=== PATIENT | male | born 1955 | race Caucasian/White ===

== ENCOUNTER 2018-07-13 07:38 | Observation (INO) ==
[2018-07-13] MEDS ORDERED: Ipratropium/Albuterol Neb 3 ML IH ONE (07:40)
[2018-07-13] MEDS ORDERED: Ipratropium/Albuterol Neb 3 ML ONE (07:42)
--- NOTE | 2018-07-13 07:44 | Emergency Department Note ---
Disposition Clinical Impression: Acute exacerbation of chronic obstructive airways disease, Pneumonitis Congestive heart failure Qualifiers: Heart failure type: unspecified Heart failure chronicity: unspecified Qualified Code(s): I50.9 - Heart failure, unspecified Disposition: Admitted As Inpatient Condition: Fair Referrals: Shira Jarrett RETAIL SELLING SPECIALIST [Primary Care Provider] - Forms: ED Satisfaction Letter Time of Disposition: 12:15 SOB HPI - General Chief Complaint: ED Shortness of Breath/Dyspnea Stated Complaint: shortness of breath Time Seen by Provider: 07/13/18 07:40 Source: patient Mode of arrival: ambulatory Limitations: no limitations Nursing Notes Reviewed: Yes Vital Signs Reviewed: Yes - History of Present Illness Anxious 63-year-old male who presents here to the emergency room who just had a pacemaker placed yesterday who is extremely short of breath. Patient does continue to smoke tried an aerosol treatment home with no relief denies blurred vision double vision loss vision he denies shearing or chest pain just he cannot breathe denies diarrhea melena hematochezia hematemesis numbness tingling weakness recent weight gain weight loss dyspnea with activity dyspnea with exertional dyspnea just sitting and resting no cough no hemoptysis no sputum production no fevers no chills also systems have been reviewed and are otherwise negative Patient was in the 80s on his pulse oximetry when he arrived to the emergency room he does not have home oxygen is had recent testing which says he does not qualify that the patient still smokes. Pt Subjective Complaint: shortness of breath Onset (ago): Just [employer] Context: other (Pacemaker placement) - Related Data Home Medications Medication Instructions Recorded Confirmed Budesonide/Formoterol 160/4.5 2 puff IH BID 02/09/17 07/13/18 [Symbicort 160/4.5] Metoprolol Succinate 100 mg PO DAILY 02/09/17 07/13/18 Tiotropium [place] [Spiriva 2 puff IH DAILY 02/01/18 07/13/18 Respimat] Acetaminophen w/Cod 300-30 mg 1 tab PO Q6HR PRN 06/17/18 07/13/18 [Tylenol w/Codeine #3] Albuterol Sulfate [Ventolin Hfa] 2 puff IH Q6H PRN 06/17/18 07/13/18 Furosemide [Lasix] 20 mg PO QPM 06/17/18 07/13/18 Furosemide [Lasix] 40 mg PO QAM 06/17/18 07/13/18 Ipratropium/Albuterol Sulfate 3 ml IH Q6H PRN 06/17/18 07/13/18 [Iprat-Albut 0.5-3(2.5) mg/3 ml] raNITIdine HCl [Zantac] 150 mg PO DAILY PRN 06/17/18 06/17/18 Previous Rx's Medication Instructions Recorded Warfarin [Coumadin] 2.5 mg PO REHANTUTHFRSA #0 06/18/18 Allergies Allergy/AdvReac Type Severity Reaction Status Date / Time No Known Allergies Allergy Verified 07/13/18 07:39 All systems ED: reviewed and negative except as stated. Review of Systems: As Per HPI Constitutional: Denies: fever, chills, weakness Eyes: Denies: eye pain, eye discharge ENT ED: Denies: ear pain, congestion, dysphagia Cardiovascular: Reports: dyspnea on exertion. Denies: chest pain, palpitations Respiratory: Reports: dyspnea, wheezes, sputum production Gastrointestinal: Denies: abdominal pain, nausea, vomiting Genitourinary: Denies: urgency, dysuria, frequency Musculoskeletal: Denies: back pain, neck pain Integumentary: Denies: rash Neurological: Denies: headache Psychiatric: Denies: anxiety Endocrine: Denies: fatigue Hematological/Lymphatic: Denies: easy bleeding Allergic/Immunologic: Denies: facial swelling Past Medical History - Past Medical History Attestation: Yes The following information was validated with the patient. Source: patient, old records reviewed, obtained from family, nursing notes reviewed Medical history: Reports: atrial fibrillation, cardiomyopathy, CHF, COPD, coronary artery disease, GERD Surgical history: Reports: hip replacement, orthopedic, other, pacemaker/AICD, sinus surgery Psychiatric history: Reports: no psych history - Social History Smoking Status: Current every day smoker Smokeless Tobacco Status: No Alcohol use: Reports: none Drug use: Reports: none Physical Exam - General Limitations: no limitations General appearance: alert, in no apparent distress, anxious, cachectic - Head Head exam: atraumatic, normocephalic, normal inspection - Eye Eye exam: Present: normal appearance, PERRL, EOMI - ENT ENT exam: normal exam, normal oropharynx, mucous membranes moist, TM's normal bilaterally, normal external ear exam - Neck Neck exam: Present: normal inspection, full ROM, trachea midline - Chest Chest inspection: Present: normal inspection, symmetric chest wall rise, other (Pacemaker Steri-Strip insertion sites noted Steri-Strips are dark dirty and discolored) - Respiratory Respiratory exam: Present: wheezes, accessory muscle use, prolonged expiratory phase - Cardiovascular Cardiovascular exam: Present: regular rate, normal rhythm, normal heart sounds - Abdominal Exam Abdominal exam: Present: soft, Non-Tender, normal bowel sounds. Absent: mass, pulsatile mass - Expanded Upper Extremity Exam Shoulder exam: Present: normal inspection, full ROM Arm exam: Present: normal inspection, full ROM Elbow exam: Present: normal inspection, full ROM Forearm/Wrist exam: Present: normal inspection, full ROM Hand exam: Present: normal inspection, full ROM Vascular exam: Normal: capillary refill, radial pulse - Expanded Lower Extremity Exam Hip/Pelvis exam: Present: normal inspection, full ROM Upper leg exam: Present: normal inspection, full ROM Knee exam: Present: normal inspection, full ROM Lower leg exam: Present: normal inspection, full ROM Ankle exam: Present: normal inspection, full ROM Foot/toe exam: Present: normal inspection, full ROM Neurovascular/Tendon exam: Present: normal capillary refill, normal fine/light touch. Absent: motor deficit, sensory deficit, tendon deficit Gait: observed and normal - Back Exam Back exam: Present: normal inspection, full ROM, muscle spasm - Neurological Exam Neurological exam: Present: alert, oriented X3, CN II-XII intact, normal gait - Psychiatric Psychiatric exam: Present: normal affect, normal mood - Skin Skin exam: Present: warm, dry, intact, normal color Course Course Narrative: [facility] room And cardiac monitoring IV established patient was given a DuoNeb by cardio pulmonary marked improvement O2 sats came up to 92% almost immediately upon completion of the breathing treatment wheezing significantly diminished patient has labs pending at this time - Reevaluation(s) Reevaluation #1: Patient was turned over at 0830 hrs. to Pat Sanchez the oncoming ER physician with the results of the chest x-ray having been completed but the labs and CT PE study completed patient is markedly improved after the aerosol treatment holding sats of 92% on room air was placed on 2 L nasal cannula I advised the patient that he will probably need this days just pending he can stay here we did give him steroids and given a dose of antibiotics here he will final disposition Dr. bernal Reevaluation #2: Patient signed out to me by off going physician, Dr. Noriega. Patient is a 63-year-old male who presented to the ED this morning with worsening shortness of breath. States he is always somewhat short of breath and symptoms been worse over the past month but postictally severe this morning. States he was seen at urgent care month ago and was given prednisone and antibiotic. States symptoms improved with those treatments but then worsened again causing to come to the ER this morning. He has a long-standing history of COPD as well as CHF and n onischemic cardiomyopathy and A. fib. He underwent AV anastasia ablation and an ICD upgrade on June 17. No complications from that surgery that he reports. He has had follow-up with cardiology and will go back to see Dr. Jason on July 23. He has not seen his primary care doctor in a while and his next appointment is not until mid July. He reports compliance with his Spiriva, Symbicort and albuterol at home. He is on Coumadin and reports compliance with this as well. Patient is feeling much better since receiving steroids and a DuoNeb here in the ER and being placed on 2 L of oxygen. On my assessment he still has some scattered wheezing is not in any distress. Laboratory studies so far do show an elevated d-dimer but a therapeutic INR. BNP is elevated in the 400s but troponin is negative. Lactic acid is normal. Still awaiting creatinine in order for patient undergo CT PE study. Chest x-ray showed what appears to be some pneumonitis and underlying COPD. Patient has already been given Levaquin. Time: 09:34 Reevaluation #3: There was a significant delay in processing the patient's creatinine due to maintenance and other laboratory equipment issues, causing a delay in obtaining the CT PE study. CT was negative for PE but did show some pleural effusions and some signs of pulmonary edema consistent with patient's history and symptoms. I feel that he is having any exacerbation of both his COPD and CHF. Will give IV Lasix. Oxygen saturations are maintaining 93-95% on 2 L. He is not in any distress. Discussed with patient recommendation for admission and he is in agreement. We are paging the hospitalist at this time. Time: 12:03 Additional Reevaluation(s): 12:23 - I spoke to Dr. Hall who has accepted the patient. Vital Signs Temperature 98.3 F 07/13/18 07:40 Pulse Rate 76 07/13/18 07:40 Respiratory Rate 22 07/13/18 07:40 Blood Pressure 122/81 07/13/18 07:40 O2 Sat by Pulse Oximetry 92 07/13/18 07:40 Temperature 98.3 F 07/13/18 07:40 Pulse Rate 70 07/13/18 11:47 Respiratory Rate 18 07/13/18 11:47 Blood Pressure 115/82 07/13/18 11:47 O2 Sat by Pulse Oximetry 97 07/13/18 11:47 Oxygen Delivery Oxygen Delivery Nasal Cannula Shortness of Breath/Dyspnea - Differential Diagnosis Likely: acute exacerbation of chronic obstructive airways disease, congestive heart failure, pneumonia - Medical Records Medical records reviewed: Yes I reviewed the patient's medical records. - Lab Data Lab results reviewed: Yes I reviewed the patient's lab results. Result diagrams: 07/13/18 08:08 07/13/18 08:08 Lab Results 07/13/18 07/13/18 07/13/18 Range/Units 08:08 08:08 08:08 WBC 9.7 (4.3-11.1) K/mcL RBC 4.64 (4.19-5.50) M/mcL Hgb 13.8 (12.9-16.9) g/dL Hct 41.4 (37.5-50.1) % MCV 89.2 (83.0-100.0) fL MCH 29.7 (28.0-33.3) pg MCHC 33.3 (31.6-35.5) g/dL RDW 14.1 (11.5-14.5) % Plt Count 129 L (140-400) K/mcL MPV 10.5 (9.4-12.4) fL Immature Gran % 0.5 (0-4) % Seg Neutrophils % 51.6 % Lymphocytes % 36.6 % Monocytes % 9.6 % Eosinophils % 1.4 % Basophils % 0.3 % Neutrophils # 5.0 (1.6-8.9) K/mcL Lymphocytes # 3.6 (0.6-4.6) K/mcL Monocytes # 0.9 (0.0-1.3) K/mcL Eosinophils # 0.1 (0.0-0.6) K/mcL Basophils # 0.0 (0.0-0.2) K/mcL PT 42.2 H (9.4-12.1) Seconds INR 3.7 APTT 44.5 H (26.0-36.0) Seconds D-Dimer (0-500) ng/mLFEU Sodium 141 (136-145) mEq/L Potassium 4.0 (3.5-5.1) mEq/L Chloride 107 (98-107) mEq/L Carbon Dioxide 28 (23-29) mEq/L BUN 13 (8-23) mg/dL Creatinine 0.71 (0.70-1.30) mg/dL Est GFR ( Amer) > 60 (> 60) Est GFR (Non-Af Amer) > 60 (> 60) BUN/Creatinine Ratio 18 (6-26) Glucose 136 H (70-105) mg/dL Calculated Osmolality 294 (280-300) Lactic Acid (0.5-2.2) mmol/L Calcium 8.6 (8.6-10.3) mg/dL Troponin I < 0.03 (< 0.04) ng/mL B-Natriuretic Peptide (Less than 100) pg/mL 07/13/18 07/13/18 07/13/18 Range/Units 08:08 08:08 08:08 WBC (4.3-11.1) K/mcL RBC (4.19-5.50) M/mcL Hgb (12.9-16.9) g/dL Hct (37.5-50.1) % MCV (83.0-100.0) fL MCH (28.0-33.3) pg MCHC (31.6-35.5) g/dL RDW (11.5-14.5) % Plt Count (140-400) K/mcL MPV (9.4-12.4) fL Immature Gran % (0-4) % Seg Neutrophils % % Lymphocytes % % Monocytes % % Eosinophils % % Basophils % % Neutrophils # (1.6-8.9) K/mcL Lymphocytes # (0.6-4.6) K/mcL Monocytes # (0.0-1.3) K/mcL Eosinophils # (0.0-0.6) K/mcL Basophils # (0.0-0.2) K/mcL PT (9.4-12.1) Seconds INR APTT (26.0-36.0) Seconds D-Dimer 911 H (0-500) ng/mLFEU Sodium (136-145) mEq/L Potassium (3.5-5.1) mEq/L Chloride (98-107) mEq/L Carbon Dioxide (23-29) mEq/L BUN (8-23) mg/dL Creatinine (0.70-1.30) mg/dL Est GFR ( Amer) (> 60) Est GFR (Non-Af Amer) (> 60) BUN/Creatinine Ratio (6-26) Glucose (70-105) mg/dL Calculated Osmolality (280-300) Lactic Acid 1.4 (0.5-2.2) mmol/L Calcium (8.6-10.3) mg/dL Troponin I (< 0.04) ng/mL B-Natriuretic Peptide 483 H (Less than 100) pg/mL - Radiology Data Radiology results reviewed: Yes I reviewed the patient's radiology results. ITS Impressions Chest X-Ray 07/13/18 07:40 IMPRESSION: Interval development of increased interstitial change seen in the right infrahilar and medial lung base region compared to the previous examination suspicious for pneumonitis superimposed on chronic COPD. D/ / Ammon Lopez MD / Ammon Lopez MD Interpreting Provider: Ammon Lopez MD - EKG Data EKG attestation: Yes I reviewed and interpreted this EKG. EKG results narrative: Based rhythm rate 76 NV 31 QRS 142 QT 439 axis CCLVII Critical Care Time Critical Care Time: Yes Total Critical Care Time: 15 Attestation: High probability clinically significant life any deteriorations patient cond ition as result the patient being in the 80s upon presentation with a recent pacemaker placement we were concerned about the possibility of a spontaneous pneumo or a pneumonia cause because the pacemaker placement but also have to be considered for possible pulmonary emboli gushing with patient family oncoming ER physician Pj - S.B.A.R. Situation: Demographics, MOA Background: Presenting Complaint, Relevant PMH, Meds, & Allergies Assessment: Vital Signs, Course and respsone to treatment, Exam Concerns, Patient/Family Expectation, Pertinant Lab Results, Outstanding Labs Recommendation: Barrier(s) to disposition, Recommendation based on pending st udies, treatments, or consults Pj Report Given to: Dr Angela Oliva Repor Time: 08:30
[2018-07-13] MEDS ORDERED: Isovue-370 500 ML BOTTLE IVP ONE (08:08)
[2018-07-13] MEDS ORDERED: methylPREDNISolone 125 MG/2 ML VIAL IVP ONE (08:08)
[2018-07-13 08:28] LABS: Basophils % 0.3 %; Eosinophils # 0.1 K/mcL (0.0-0.6); Eosinophils % 1.4 %; Hematocrit 41.4 % (37.5-50.1); Hemoglobin 13.8 g/dL (12.9-16.9); Immature Granulocytes % 0.5 % (0-4); Lymphocytes # 3.6 K/mcL (0.6-4.6); Lymphocytes % 36.6 %; Mean Corpuscular HGB Conc 33.3 g/dL (31.6-35.5); Mean Corpuscular Hemoglobin 29.7 pg (28.0-33.3); Mean Corpuscular Volume 89.2 fL (83.0-100.0); Mean Platelet Volume 10.5 fL (9.4-12.4); Monocytes # 0.9 K/mcL (0.0-1.3); Monocytes % 9.6 %; Platelet Count 129 K/mcL (140-400); Red Blood Count 4.64 M/mcL (4.19-5.50); Red Cell Distribution Width 14.1 % (11.5-14.5); Segmented Neutrophils % 51.6 %; White Blood Count 9.7 K/mcL (4.3-11.1)
[2018-07-13 08:33] LABS: INR 3.7; Prothrombin Time 42.2 Seconds (9.4-12.1)
[2018-07-13 08:35] LABS: Activated Partial Thrombo Time 44.5 Seconds (26.0-36.0)
[2018-07-13] MEDS ORDERED: levoFLOXacin 500 MG/100 ML 500 MG/100 ML BAG IVPB ONE (08:37)
[2018-07-13 08:47] LABS: Troponin I < 0.03 ng/mL (< 0.04)
[2018-07-13 08:54] LABS: Blood Urea Nitrogen 13 mg/dL (8-23); Calcium 8.6 mg/dL (8.6-10.3); Chloride 107 mEq/L (98-107); Glucose 136 mg/dL (70-105); Osmolality,Calculated 294 (280-300); Sodium 141 mEq/L (136-145)
--- NOTE | 2018-07-13 11:07 | Electrocardiograph Report ---
[place] [id number] Test Date: 2018-07-13 Pat Name: Willis Wallis Department: EDP-16 Room: Gender: M Cardiology Technician: : 1955 Requested By: Ramona Noriega Order Number: [id number] Reading MD: Marlon Jason Measurements Intervals [place] Rate: 76 P: 219 MO: 30 QRS: 257 QRSD: 142 T: 71 QT: 439 QTc: 641 Interpretive Statements Ventricular-paced complexes No further analysis attempted due to paced rhythm Electronically Signed On 07-13-2018 11:06:10 EDT by Marlon Jason
[2018-07-13 11:12] LABS: BUN/Creatinine Ratio 18 (6-26); Carbon Dioxide 28 mEq/L (23-29); eGFR For African Americans > 60 (> 60); eGFR For Non-African Americans > 60 (> 60)
[2018-07-13] MEDS ORDERED: Furosemide 40 MG/4 ML VIAL IVP ONE (12:02)
[2018-07-13] MEDS ORDERED: Naloxone 0.4 MG/ML INJ IVP PRN ×2 (12:19→12:42)
[2018-07-13] MEDS ORDERED: *HR* Warfarin 2.5 MG TABLET PO SCH (12:42)
[2018-07-13] MEDS ORDERED: Ipratropium/Albuterol Neb 3 ML IH PRN (12:42)
--- NOTE | 2018-07-13 19:15 | Internal Med History&Physical ---
Date of Encounter: 07/13/18 Time of Encounter: 18:40 Assessment and Plan (1) Acute exacerbation of congestive heart failure Current visit: Yes Status: Acute He was given IV Lasix in emergency room. Antibiotics were also given for possible pneumonia but these will not be continued since I feel his dyspnea is primarily due to heart failure. Labs will be monitored. Qualifiers: Heart failure type: systolic Qualified Code(s): I50.23 - Acute on chronic systolic (congestive) heart failure (2) NICM (nonischemic cardiomyopathy) Current visit: No Status: Chronic As above (3) Atrial fibrillation Current visit: No Status: Chronic Monitor INR and continue Coumadin. Qualifiers: Atrial fibrillation type: chronic Qualified Code(s): I48.2 - Chronic atrial fibrillation (4) COPD (chronic obstructive pulmonary disease) Current visit: No Status: Chronic Room air oximetry will be checked prior to discharge. Qualifiers: COPD type: chronic bronchitis Chronic bronchitis type: unspecified Qualified Code(s): J42 - Unspecified chronic bronchitis Internal Medicine - H&P: HPI Chief complaint: Dyspnea Admitted From: Emergency Dept Plans for Post Hospital Care: Home History of present illness: Mr. Wallis is a 63 year old male who came to emergency room stating he has had progressive dyspnea for over 2 months. It worsened this morning so he came to emergency room. He was found to have elevated d-dimer. Chest CTA showed no pulmonary embolus but there was mild to moderate right pleural effusion. BN peptide was elevated at 483. He was admitted to [facility] floor for ongoing care needs. Cardiovascular history is significant for paroxysmal atrial fibrillation. He is on Coumadin. He has history of nonischemic cardiomyopathy with LHC done approximately 2015 at [facility] showing no significant CAD. Echocardiogram 02/03/2018 showed LVEF of 40-45%. Diastolic function was not easily assessed because of atrial fibrillation. Interventricular septum and posterior wall thickness measurements were 1.00 and 1.01 cm respectively. There was mild tricuspid regurgitation. He denies DE DVT or pulmonary embolus. He generally has borderline hypotension. He had AICD implant 06/17/2018. Respiratory history is significant for having smoked since age 15 up to 2 packs per day. He had PFTs 06/29/2017 which showed FVC 63% predicted, FEV1 30% predicted, FEV1/FVC 46%, MVV 36% predicted, RV 77% predicted, and DLCO (correcte d) 33% predicted. There was significant improvement in FEV1 and FVC postbronchodilator. He was diagnosed with severe obstructive lung disease. He does not use home oxygen. He claims a diagnosis of pulmonary sarcoid. Past Med Surg Social Fam HX - Past Medical History Medical history: atrial fibrillation, cardiomyopathy, CHF, COPD, coronary artery disease, GERD Additional medical history: emphyzema, sarcoidosis, Psychiatric history: no psych history - Past Surgical History Surgical History: pacemaker/AICD Additional surgical history: LEFT HUMERUS FRACTURE - Social History Smoking Status: Current every day smoker Packs per day: 1.5 Smokeless Tobacco Status: No Alcohol use: rarely Drug use: none - Family History Mother Hx Family Cardiac Disorders: Yes Hx Family Cancer: Yes Father Hx Family Cardiac Disorders: Yes Hx Family Respiratory Disorders: Yes Internal Medicine - H&P: Meds Budesonide/Formoterol 160/4.5 [Symbicort 160/4.5] 2 puff IH BID 02/09/17 [History] Metoprolol Succinate 100 mg PO DAILY 02/09/17 [History] Tiotropium [place] [Spiriva Respimat] 2 puff IH DAILY 02/01/18 [History] Acetaminophen w/Cod 300-30 mg [Tylenol w/Codeine #3] 1 tab PO Q6HR PRN 06/17/18 [History] Albuterol Sulfate [Ventolin Hfa] 2 puff IH Q6H PRN 06/17/18 [History] Furosemide [Lasix] 20 mg PO QPM 06/17/18 [History] Furosemide [Lasix] 40 mg PO QAM 06/17/18 [History] Ipratropium/Albuterol Sulfate [Iprat-Albut 0.5-3(2.5) mg/3 ml] 3 ml IH Q6H PRN 06/17/18 [History] raNITIdine HCl [Zantac] 150 mg PO DAILY PRN 06/17/18 [History] Warfarin [Coumadin] 2.5 mg PO SUMOTUTHFRSA #0 06/18/18 [Rx] Allergy/AdvReac Type Severity Reaction Status Date / Time No Known Allergies Allergy Verified 07/13/18 07:39 All Systems PM: A 10-system review of systems was performed and is negative for pertinent findings except as documented above in the HPI. Review of systems: Gen.: His weight has been stable at approximately 56 kg since January [facility] hospitalization Cardiovascular: As per history of present illness Respiratory: As per history of present illness GI: He denies disorders of his liver gallbladder or exocrine pancreas : He denies hematuria dysuria or kidney stones Neurologic: He denies large distribution strokes or seizures. Endocrine: He denies diabetes thyroid disease or hyperlipidemia Hematology/oncology: He denies blood disorders cancers or anemia Psychiatric: He denies anxiety depression or other mental health issues Muscle skeletal: He had left total hip replacement 2018. He reports a fracture of his left shoulder diagnosed approximately one month ago is being treated nonoperatively. He has DJD but denies gout. - Constitutional Vitals: Temp Pulse Resp BP Pulse Ox 97.9 F 78 18 108/69 95 07/13/18 12:49 07/13/18 12:49 07/13/18 12:49 07/13/18 12:49 07/13/18 12:49 Exam: Gen.: He is a well-developed lean male lying in bed who appears in no acute distress HEENT: Head is atraumatic and normocephalic. Eyes: EOMI. There is no scleral icterus. Mouth: Mucosa is moist. Neck: Supple and nontender. There is no thyromegaly or adenopathy noted. Heart: Regular without murmurs gallops or ectopics Chest: A left upper chest AICD is in place subcutaneously with Steri-Strips covering the incision site. Lungs: No wheezes or crackles are heard. He has egophony in the right posterior midlung field Abdomen: Soft and nontender. No masses or guarding are noted. Extremities: There is no cyanosis edema or clubbing noted. Dorsalis pedis and posttibial pulses are 1-2 over 2 bilaterally. Neurologic: Mental status: He is talkative and a good historian. Cranial nerves: Smile is symmetric. Forehead wrinkles bilaterally. Tongue protrudes midline. EOMI. Motor: There is no pronator drift. Cerebellar: Finger to nose is intact bilaterally. Skin: Warm and dry Internal Med - H&P Results - Labs CBC & Chem 7: 07/13/18 08:08 07/13/18 08:08 Labs: Short CBC 07/13/18 Range/Units 08:08 WBC 9.7 (4.3-11.1) K/mcL Hgb 13.8 (12.9-16.9) g/dL Hct 41.4 (37.5-50.1) % Plt Count 129 L (140-400) K/mcL Neutrophils # 5.0 (1.6-8.9) K/mcL BMP 07/13/18 08:08 Sodium 141 Potassium 4.0 Chloride 107 Carbon Dioxide 28 BUN 13 Creatinine 0.71 Glucose 136 H Calcium 8.6 Cardiac Enzymes 07/13/18 Range/Units 08:08 Troponin I < 0.03 (< 0.04) ng/mL - Impressions ITS Impressions Chest X-Ray 07/13/18 07:40 IMPRESSION: Interval development of increased interstitial change seen in the right infrahilar and medial lung base region compared to the previous examination suspicious for pneumonitis superimposed on chronic COPD. D/ / Ammon Lopez MD / Ammon Lopez MD Interpreting Provider: Ammon Lopez MD Chest CTA 07/13/18 08:08 IMPRESSION: Increased size of moderate right pleural effusion. Developing small left pleural effusion. Septal thickening is demonstrated; correlate for signs or symptoms of mild pulmonary edema. Enlarged AP window lymph node can be reactive. Follow-up to resolution is recommended. No findings to suggest large central pulmonary embolism. D/ / Johan Treviño MD / Johan Treviño MD Interpreting Provider: Johan Treviño MD - VTE Reasons for not Prescribing Prophylaxis: Not indicated-Anticoagulated or INR therapeutic
[2018-07-13] MEDS: Furosemide 40 MG/4 ML VIAL IVP SCH (19:37)
[2018-07-13] MEDS: Budesonide/Formoterol 160/4.5 1 PUFF INH IH SCH (21:07)
[2018-07-14 04:55] LABS: Basophils % 0.1 %; Hematocrit 39.2 % (37.5-50.1); Hemoglobin 13.5 g/dL (12.9-16.9); Lymphocytes # 1.8 K/mcL (0.6-4.6); Mean Corpuscular HGB Conc 34.4 g/dL (31.6-35.5); Mean Corpuscular Hemoglobin 29.8 pg (28.0-33.3); Mean Corpuscular Volume 86.5 fL (83.0-100.0); Mean Platelet Volume 10.9 fL (9.4-12.4); Monocytes # 0.5 K/mcL (0.0-1.3); Monocytes % 6.1 %; Neutrophils # 5.5 K/mcL (1.6-8.9); Platelet Count 135 K/mcL (140-400); Red Blood Count 4.53 M/mcL (4.19-5.50); Segmented Neutrophils % 69.8 %; White Blood Count 7.9 K/mcL (4.3-11.1)
[2018-07-14 05:19] LABS: BUN/Creatinine Ratio 26 (6-26); Blood Urea Nitrogen 17 mg/dL (8-23); Calcium 8.7 mg/dL (8.6-10.3); Carbon Dioxide 28 mEq/L (23-29); Chloride 104 mEq/L (98-107); Glucose 121 mg/dL (70-105); Osmolality,Calculated 291 (280-300); Potassium 3.8 mEq/L (3.5-5.1); Sodium 139 mEq/L (136-145); eGFR For African Americans > 60 (> 60); eGFR For Non-African Americans > 60 (> 60)
[2018-07-14 05:32] LABS: Thyroid Stimulating Hormone 0.319 mcIU/mL (0.340-5.600)
[2018-07-14 06:50] VITALS: BP 111/63
[2018-07-14] MEDS: Furosemide 40 MG/4 ML VIAL IVP SCH (08:16)
[2018-07-14] MEDS ORDERED: Metoprolol XL (24 HR) Succ 50 MG TAB.ER.24H PO SCH (09:00)
[2018-07-14] MEDS ORDERED: NON-FORMULARY MEDICATION 1 EACH EACH (Tiotropium Bromide [Spiriva Respimat] 2 PUFF) IH SCH (09:00)
[2018-07-14] MEDS: Budesonide/Formoterol 160/4.5 1 PUFF INH IH SCH (09:13)
[2018-07-14] MEDS ORDERED: Tiotropium 18 MCG inhalation IH SCH (10:00)
--- NOTE | 2018-07-14 11:01 | Discharge Summary ---
Orders not resulted at time of discharge: Pending orders 07/13/18 08:08 Culture,Blood [BC] Stat Date of Encounter: 07/14/18 Time of Encounter: 10:52 - Discharge Diagnosis (1) Acute exacerbation of congestive heart failure Priority: Primary Status: Acute Qualifiers: Heart failure type: systolic Qualified Code(s): I50.23 - Acute on chronic systolic (congestive) heart failure (2) NICM (nonischemic cardiomyopathy) Priority: Secondary Status: Chronic (3) Atrial fibrillation Priority: Secondary Status: Chronic Qualifiers: Atrial fibrillation type: chronic Qualified Code(s): I48.2 - Chronic atrial fibrillation (4) COPD (chronic obstructive pulmonary disease) Priority: Secondary Status: Chronic Qualifiers: COPD type: chronic bronchitis Chronic bronchitis type: unspecified Qualified Code(s): J42 - Unspecified chronic bronchitis Hospital course: Mr. Wallis is a 63 year old male who came to emergency room stating he has had progressive dyspnea for over 2 months. It worsened this morning so he came to emergency room. He was found to have elevated d-dimer. Chest CTA showed no pulmonary embolus but there was mild to moderate right pleural effusion. BN peptide was elevated at 483. He was admitted to [facility] for ongoing care needs. Initial orders were written by the emergency room physician. I saw him on July 13 and performed a history and physical. He was started on IV Lasix. BN peptide decreased to 405 by the following day. His dyspnea lessened and he felt stable for discharge home. I encouraged him to become a nonsmoker. He will continue Lasix 40 mg a.m. and 20 mg p.m. Room air oximetry showed saturation decreasing to 87% in the third minute of a 6 minute walk. He became more dyspneic and required immediate reinstitution of oxygen for comfort and safety. He will be prescribed oxygen at 2 L/m by nasal cannula 15/09 with portable gas and concentrator. Qualifying diagnosis is COPD with hypoxemia not remedied by use of bronchodilators. He will follow with his PCP Shira Jarrett CNP within 1 week. - Time Spent with Patient Total time spent providing and/or coordinating discharge services: - Discharge Medications Prescriptions: Continued Budesonide/Formoterol 160/4.5 [Symbicort 160/4.5] 2 puff IH BID Metoprolol Succinate 100 mg PO DAILY Tiotropium Aurora [Spiriva Respimat] 2 puff IH DAILY Acetaminophen w/Cod 300-30 mg [Tylenol w/Codeine #3] 1 tab PO Q6HR PRN PRN Reason: Pain Albuterol Sulfate [Ventolin Hfa] 2 puff IH Q6H PRN PRN Reason: Shortness Of Breath Furosemide [Lasix] 40 mg PO QAM raNITIdine HCl [Zantac] 150 mg PO DAILY PRN PRN Reason: GERD Warfarin [Coumadin] 2.5 mg PO SUMOTUTHFRSA #0 Furosemide [Lasix] 20 mg PO QPM #90 tablet Discontinued Ipratropium/Albuterol Sulfate [Iprat-Albut 0.5-3(2.5) mg/3 ml] 3 ml IH Q6H PRN PRN Reason: Shortness Of Breath Home Medications: Budesonide/Formoterol 160/4.5 [Symbicort 160/4.5] 2 puff IH BID 02/09/17 [History] Metoprolol Succinate 100 mg PO DAILY 02/09/17 [History] Tiotropium Aurora [Spiriva Respimat] 2 puff IH DAILY 02/01/18 [History] Acetaminophen w/Cod 300-30 mg [Tylenol w/Codeine #3] 1 tab PO Q6HR PRN 06/17/18 [History] Albuterol Sulfate [Ventolin Hfa] 2 puff IH Q6H PRN 06/17/18 [History] Furosemide [Lasix] 40 mg PO QAM 06/17/18 [History] raNITIdine HCl [Zantac] 150 mg PO DAILY PRN 06/17/18 [History] Warfarin [Coumadin] 2.5 mg PO SUMOTUTHFRSA #0 06/18/18 [Rx] Furosemide [Lasix] 20 mg PO QPM #90 tablet 07/14/18 [Rx] Allergies/Adverse Reactions: Allergy/AdvReac Type Severity Reaction Status Date / Time No Known Allergies Allergy Verified 07/13/18 07:39 Date of admission: 07/13/18 12:23 Primary care physician: Shira Jarrett - Constitutional Vitals: Temp Pulse Resp BP Pulse Ox 97.7 F 72 18 111/63 93 07/14/18 06:45 07/14/18 06:45 07/14/18 09:15 07/14/18 06:45 07/14/18 09:15 - Patient Status Disposition: Home, Self-Care Condition: Fair - Discharge Instructions Follow Up With: Shira Jarrett CNP [Primary Care Provider] - 1 week - Diet and Activity Activity: resume usual activities as tolerated, wear oxygen at all times Diet: advance to your usual diet - VTE Reasons for not Prescribing Prophylaxis: Not indicated-Anticoagulated or INR therapeutic
== END 2018-07-14 11:53 | disposition home or self-care (01) ==
LOC: INPPIK 07:38 → EMEROOPIK 07:38 → INPPIK 12:37
PROVIDERS: ADMIT Internal Medicine; ATTEND Internal Medicine